=== PATIENT | male | born 1950 | race Caucasian/White ===

== ENCOUNTER 2019-10-10 02:54 | Emergency (ER) | payer MEDICARE, SELFPAY ==
[2019-10-10 02:56] VITALS: BP 181/104; PULSE 86; RESP 17; TEMP 36.9; O2SAT 88; BMI 36.7
--- NOTE | 2019-10-10 03:30 | ED.VIS.GEN ---
History of Present Illness Chief Complaint: Eye Problem Detail of Chief Complaint: bleeding Informant: Patient Onset: Hours - 1-2 Context: Sudden Onset - spontaneous Timing: Continuous Quality: pulsatile bleeding Location: operative site, skin around left eye Current Severity: Mild Maximum Severity: Severe Worsened by: nothing Relieved by: gauze/pressure Associated Symptoms: none Narrative: Patient states he had surgery on the skin around his left eye, he had a basal cell skin cancer removed, he had 2 different surgeries one was 7 days ago and the other was 5 days ago, both in [place], by plastic surgeon Dr. Burch. He did not have surgery on his eye proper. He takes aspirin but has discontinued it 1-2 weeks prior to the operation and has not restarted it. No anticoagulants. He states he bent down to get in position to sit in his chair he was going to sleep into night, and bleeding started spontaneously and at one point was pulsatile. He called the surgeon and he advised that he come to the nearest emergency department. Patient denies any symptoms of anemia. He states he has postoperative pain in this area, and it is no worse than it has been. Past Medical History - Allergies and Home Meds Allergies/Adverse Reactions: Allergies Latex, Natural Rubber Allergy (Verified 10/10/19 03:03) Rash monosodium glutamate Adverse Reaction (Verified 10/10/19 03:03) NEEDS FOLLOW-UP Primary Care Physician: Kenzie Sexton NP-C [NON-STAFF] - Lives: Spouse/ Significant Other Smoking Status: Never smoker Review of Systems General: Denies: Chills, Fever, Sweats Eyes: Reports: - - Unable to see out of his left eye due to postoperative swelling in the eyelid and skin around his eye. Spontaneous postoperative bleeding, see HPI. Postoperative periorbital pain on the left.. Denies: Visual changes - bilaterally, Diplopia ENT: Denies: Rhinorrhea, Sore throat Cardiovascular: Denies: Chest pain, Palpitations Respiratory: Denies: Dyspnea, Cough Gastrointestinal: Denies: Abdominal pain, Nausea, Vomiting, Diarrhea Genitourinary: Denies: Dysuria, Hematuria, Frequency Musculoskeletal: Denies: Neck pain, Extremity Pain Skin: Reports: Wounds. Denies: Rash Neurological: Denies: Headache, Weakness, Numbness Physical Exam Vital Signs/Narrative: Vital Signs Temp Pulse Resp BP Pulse Ox 10/10/19 02:56 98.5 F 86 17 181/104 H 88 Inital Vital Signs reviewed: Yes General: Well nourished, Well developed, No Acute Distress Head: Normocephalic, Atraumatic Eyes: - - Right eye looks normal, left is not able to be seen due to amount of periorbital edema. ENT: Moist mucous membranes, No rhinorrhea, - - There is a curved surgical incision around the upper eyelid, and gauze that appears to be sutured in place just to the left of the lateral canthus. There is no active bleeding. There is no dehiscence of the wound or signs of cellulitis. The entire area is mildly tender. With gentle palpation of the area, there is very mild seepage of dark blood at the center of the incision above his thigh, and there is a very small amount coming from underneath of the cranial aspect of the gauze that is sutured and laterally. Nothing pulsatile now. Neck: Supple, Nontender Respiratory: No distress Skin: Normal color, No rash, - - see above for skin findings, HEENT Neurological: Alert, Oriented x3, Cranial nerves II-XII grossly intact, Normal Strength, Normal Sensation, Normal Gait Psychological: Normal affect, Normal Mood Diagnostic/Tx/Re-eval - Medical Decision Making I placed 3 pieces of Surgifoam strategically in areas along the incision that look like they could have been the source of the bleeding. Patient was monitored in the emergency department for about 1.5 hours. There was minimal oozing of blood, it appeared to mostly be coming from the left side of the incision, where there is some gauze sutured against the incision, under the piece of Surgifoam that I placed. Nurses did not have a pressure dressing on the area during this time. There is no pulsatile or life-threatening bleeding. As I discussed with the patient, I am comfortable placing a bulky gauze dressing along with mild pressure from his eye shield that has a headband, which is how the patient presented to the emergency department, and discharging him home. He and his are comfortable with that plan as well. Advised to follow-up with his surgeon. ED Disposition - Plan for ED Patient: Disposition: Home or Assisted Living Diagnosis: Postoperative bleeding from incision Instructions: ED Wound Check Post Op Bleeding Referrals: Kenzie Sexton NP-C [NON-STAFF] - surgeon, your [Other] (1-2 days)
== END 2019-10-10 04:50 | disposition home or self-care (01) ==
PROVIDERS: Emergency Provider Emergency Medicine
DX: L76.22 Postprocedural hemorrhage of skin and subcutaneous tissue following other procedure (principal)
CPT/HCPCS: 99282

== ENCOUNTER 2020-03-09 17:59 | Emergency (ER) | payer OTHER, MEDICARE, SELFPAY ==
[2020-03-09 18:01] VITALS: BP 176/93; PULSE 92; RESP 15; TEMP 36.3; O2SAT 94; BMI 35.7
--- NOTE | 2020-03-09 19:03 | US_ITS ---
STUDY: VENOUS DOPPLER ULTRASOUND - LEFT LOWER EXTREMITY REASON FOR EXAM: Male, 69 years old. LEFT LOWER LEG REDNESS AND SWELLING TECHNIQUE: Ultrasound evaluation of the deep vein system to include godinez-scale imaging and compression was performed. Godinez-scale imaging and Doppler sonographic evaluation, including duplex spectral analysis and qualitative color flow sonography, was performed. COMPARISON: None. FINDINGS: Common Femoral Vein: Normal compression, spontaneity and augmentation. Normal color Doppler. Common Femoral Vein/Greater Saphenous Junction: Normal compression, spontaneity and augmentation. Normal color Doppler. Femoral Proximal: Normal compression, spontaneity and augmentation. Normal color Doppler. Femoral Middle: Normal compression, spontaneity and augmentation. Normal color Doppler. Femoral Distal: Normal compression, spontaneity and augmentation. Normal color Doppler. Popliteal Vein: Normal compression, spontaneity and augmentation. Normal color Doppler. Posterior Tibial Vein: Normal compression, spontaneity and augmentation. Normal color Doppler. Peroneal Vein: Normal compression, spontaneity and augmentation. Normal color Doppler. US/Venous Duplex Imag/Limited/Uni IMPRESSION: Normal venous Doppler ultrasound of the lower extremity. Electronically Signed: Levi Cornelius, at 20:25 EST Tel , Service support ,
--- NOTE | 2020-03-09 19:24 | ED.DCSUM_ITS ---
History of Present Illness Chief Complaint: Lower Extremity Injury Informant: Patient Narrative: Patient is a 69-year-old male who presents to the emergency department for left leg swelling and pain. He was concerned that he has a DVT. He has had issues with this leg multiple times before in the past. This episode has been bothering her for the past 2 weeks. He states that the leg has turned red. He has had ulcers before in the past. He denies being on any antibiotics for this recently. The pain is all below his knee. He denies any trauma to the area. He has no history of blood clots. Denies any chest pain or shortness of breath. Denies any systemic symptoms including any fever/chills or nausea/vomiting. He has not been taking anything for this. His current pain level is a 3 out of 10. Movement does seem to make the pain worse. He did come off his aspirin 2 weeks ago was exposed to have a cosmetic procedure on his eye but ended up not having the surgery. No issues with ambulation. Past Medical History - Allergies and Home Meds Allergies/Adverse Reactions: Allergies Latex, Natural Rubber Allergy (Verified 03/09/20 18:00) Rash monosodium glutamate Adverse Reaction (Verified 03/09/20 18:00) NEEDS FOLLOW-UP Primary Care Physician: [facility] [Primary Care Provider] - 3-5 Days if not improving Prior records reviewed: Yes - CAD, hypertension, diabetes Smoking Status: Never smoker Review of Systems All systems negative except as indicated General: Denies: Chills, Fever, Sweats Eyes: Denies: Visual changes - bilaterally, Diplopia ENT: Denies: Rhinorrhea, Sore throat Cardiovascular: Denies: Chest pain, Palpitations Respiratory: Denies: Dyspnea, Cough, Dyspnea on exertion Gastrointestinal: Denies: Abdominal pain, Nausea, Vomiting, Diarrhea Genitourinary: Denies: Dysuria, Hematuria, Frequency Musculoskeletal: Reports: Swelling, Extremity Pain. Denies: Back pain Skin: Reports: - - Erythema to left lower extremity. Denies: Wounds Neurological: Denies: Headache, Weakness, Numbness Physical Exam Vital Signs/Narrative: Vital Signs Temp Pulse Resp BP Pulse Ox 03/09/20 18:01 97.4 F L 92 15 176/93 H 94 Inital Vital Signs reviewed: Yes General: Well nourished, Well developed, No Acute Distress Head: Normocephalic, Atraumatic Eyes: Perrl, EOMI ENT: Moist mucous membranes, No rhinorrhea Neck: Supple, Nontender Cardiovascular: Regular rate, Regular rhythm, No murmurs Respiratory: No distress, CTA bilaterally, Chest nontender Abdomen: Soft, Nontender, Nondistended, Normal bowel sounds Back: Nontender, Normal Inspection Extremities: Tenderness - Left calf, Edema Skin: No rash, - - Left leg has erythema surrounding the calf and [place]. Otherwise neurovascular intact. Neurological: Alert, Oriented x3, Cranial nerves II-XII grossly intact, Normal Strength, Normal Sensation Psychological: Normal affect, Normal Mood Diagnostic/Tx/Re-eval - Medical Decision Making Patient presents to the emergency department for pain and swelling of his left lower extremity. He is concerned about a blood clot. He has no signs or symptoms of pulmonary embolism. Will obtain ultrasound of the lower extremity. Ultrasound of the lower extremity did not show any evidence of DVT. Will place on antibiotics to cover cellulitis. He is to follow-up with his PCP. Warning signs and symptoms which to return to ED including developing systemic symptoms or streaking up the leg are reviewed. He understands and is agreeable this plan. Patient discharged home in stable condition. All questions answered. ED Disposition - Plan for ED Patient: Disposition: Home or Assisted Living Diagnosis: Cellulitis, leg Instructions: ED Cellulitis Prescriptions: Smz/Tmp Ds [Bactrim Ds] 1 tab PO BID #14 tab Transmission Status: Received by [id number] Cephalexin [Keflex] 500 mg PO Q6 #28 cap Transmission Status: Received by [id number] [Primary Care Provider] - 3-5 Days if not improving
[2020-03-09 19:41] VITALS: BP 165/70; PULSE 78; RESP 18
== END 2020-03-09 19:42 | disposition home or self-care (01) ==
PROVIDERS: Emergency Provider Emergency Medicine
DX: L03.116 Cellulitis of left lower limb (principal); I25.10 Atherosclerotic heart disease of native coronary artery without angina pectoris; E11.9 Type 2 diabetes mellitus without complications; I10 Essential (primary) hypertension; Z79.4 Long term (current) use of insulin
CPT/HCPCS: 93971; 99282